=== PATIENT | male | born 1940 | race Caucasian/White ===

== ENCOUNTER → 2024-11-05 10:40 | Outpatient (REF) | payer MEDICARE, SELFPAY | LOC: RCS 10:40 | PROVIDERS: ATTENDING PHYSICIAN Internal Medicine Cardiovascular Disease; FAMILY PHYSICIAN Internal Medicine | DX: I10 Essential (primary) hypertension (principal); R00.2 Palpitations; R53.83 Other fatigue | CPT/HCPCS: 93017 ==

== ENCOUNTER → 2024-11-15 06:15 | Outpatient (REF) | payer MEDICARE, SELFPAY | LOC: MRI 3T 06:15 | PROVIDERS: ATTENDING PHYSICIAN Physician Assistant; FAMILY PHYSICIAN Internal Medicine | DX: M25.562 Pain in left knee (principal); M25.561 Pain in right knee | CPT/HCPCS: 73721 ==

== ENCOUNTER 2025-05-25 05:49 | Inpatient (IN) | payer OTHER, SELFPAY ==
--- NOTE | 2025-04-08 14:44 | CM ---
CM left message.
--- NOTE | 2025-04-09 12:42 | CM ---
CM spoke with patient. CM confirmed demographics. Patient lives independently with with . Patient does not have a history of VN or SNF. Patient has a cane for ambulation. Patient is active with his PCP. Patient uses [facility] for medication
services. Patient stated that he has not considered outpatient PT. He advised this CM that his family is unable to drive him and due to convenience of his family is he requesting VN. CM advised that outpatient PT is recommended and PT in the
hospital would evaluate for any changes from that discharge plan.
Patient stated that he called his insurance and was advised that it would be covered. Patient will meet with Dr. Cantu and he will discuss with Dr. Cantu that he does not want outpatient PT. Patient reiterated it is only for convenience of his
family and they will not be available to drive patient to his outpatient appointments.
CM encouraged patient to make an outpatient appointment with his preferred facility. Patient will discuss discharge plan with Dr. Cantu.
PLAN: Pending, CM advised outpatient PT.
--- NOTE | 2025-04-14 12:45 | CM ---
CM received call from patient explaining that he has a pending Moh's procedure and is unsure how to proceed. CM advised patient to call [facility] and update surgeon with patient's concerns.
--- NOTE | 2025-04-30 11:51 | CM ---
Addendum entered by Gissel Anderson RN 05/01/25 10:34:
HORACIO spoke with Chong from [facility] and was updated that they are attempting to put patient's DME through his insurance. As per Chong, Venous compression device is NOT covered, but they will attempt to assist patient. CM updated patient and encouraged patient
to call Chong with further questions.
CM will remain available as needed.
Original Note:
CM received call from patient requesting home care post operatively. Patient stated that [facility]. CM updated [facility] Admission RN.
Patient further stated that he is unable to secure a Venous Compression Device from [facility] due to cost. CM left message for Chong at [facility] to discuss alteratives to [facility] for patient.
[2025-05-11 11:46] LABS: Hematocrit 34.7 % (39.0-52.0); Hemoglobin 12.2 g/dL (13.0-18.0); Mean Corp Hgb Conc. 35.2 g/dL (33.0-37.0); Mean Corpuscular Volume 94.0 fL (80.0-94.0); Platelet Count 189 10^3/uL (130-400); Red Cell Dist. Width 13.2 % (11.5-14.5)
[2025-05-11 13:06] LABS: Glycohemoglobin (HgbA1c) 5.4 % (4.0-5.6)
[2025-05-11 14:23] VITALS: BMI 25.6
[2025-05-11 14:51] VITALS: BMI 25.6
[2025-05-11 15:55] LABS: ALT (SGPT) 24 U/L (0-50); AST (SGOT) 33 U/L (17-59); Albumin 4.5 g/dl (3.5-5.0); Alkaline Phosphatase 50 U/L (38-126); Blood Urea Nitrogen 15 mg/dl (9-20); Calcium 8.9 mg/dl (8.4-10.2); Carbon Dioxide 23 mmol/L (22-30); Chloride 99 mmol/L (98-107); Estimated Creatinine Clearance 65 ml/min; Glucose 74 mg/dl (70-99); Potassium 4.8 mmol/L (3.5-5.1); Sodium 133 mmol/L (135-145); Total Protein 7.0 g/dl (6.3-8.2); eGFR > 60.00
--- NOTE | 2025-05-12 15:19 | VNURNOTE ---
Rec'ed info from Surg coordinator, Gissel that patient had questions r/t home health services. Called patient. Answered all questions: when to expect a call from [facility] after surgery, estimated length of services, etc. Patient verbalized
understanding. Patient stated he has a bedroom on the first floor of his condo. He confirms that his spouse will be home with him and his daughter will pick him up when cleared for DC. [facility] will follow. Referral accepted in [facility].
--- NOTE | 2025-05-14 12:10 | CM ---
CM received call from patient who stated that he was curious if he would be cared for by a resident since his surgery was May 25. CM advised that patient would not have residents caring for him unless the hospitalist service was consulted. Patient
appeared to be satisfied with that answer. CM will remain available as needed.
[2025-05-18 14:05] VITALS: BMI 24.2
[2025-05-25] VITALS (12 sets, daily range): BP systolic 94–145; BP diastolic 67–86; PULSE 88–89; O2SAT 98
[2025-05-25] MEDS: TYLENOL 650 MG PO ×4 (06:20→23:00)
[2025-05-25] MEDS: CELEBREX 200 MG PO (06:20)
[2025-05-25] MEDS: NORMOSOL-R/PLASMALYTE-A 1000 IV (06:34)
[2025-05-25] MEDS: ROXICODONE 5 MG PO ×3 (10:18→20:38)
--- NOTE | 2025-05-25 10:45 | PTCARENOTE ---
Pt received from the PACU via bed. Transport was w/o incident. Pt is AAOx3, HRR w/ murmur. Lungs are clear, resp. easy. Pt noted to have as baseline scrape on right herrno, and right foot, CARROLL: healing. Pt's surgical dressing to right knee C/D/I scant
amt. of drainage noted on antibacterial dressing. Pt deneis nausea and admits to mild pain to right knee. VSS, Pt is afebrile. Pt oriented to new hosp. room and instructed on plan of care. Pt verbalized understanding of instructions. Call thorpe is
within reach.
[2025-05-25] MEDS: NSS 1000 IV (10:55)
[2025-05-25] MEDS: SYNTHROID PO (10:55)
[2025-05-25] MEDS: DIOVAN PO (10:55)
--- NOTE | 2025-05-25 12:10 | W.PN.UPDATE ---
Update Note
Progress Note Update
R knee OA s/p R TKA w/ Dr Cantu 05/25/25
DVT prophylaxis - ASA, b/l venous foot pumps
HTN - + parameters - monitor BP
PAT w/ h/o palpitations - monitor on tele
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
SOFIA, compliant with CPAP
Empyema, 2018, following chest tube insertion for traumatic lung injury
- Monitor O2
- IS
- Resume CPAP HS
GERD - continue PPI therapy
Iron deficiency anemia, on oral supplementation - non-invasive hgb in AM
- Continue PO iron
Mild hyponatremia, likely in setting of daily alcohol - NSS running
- Asymptomatic
Daily alcohol, 1 drink reported daily - monitor for potential s/sx of withdrawal
Mild valvular disease
Remote diverticulitis
Multilevel degenerative disc disease
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
Hypothyroidism
Basal cell carcinoma, status post Mohs
Osteopenia
MRSA of pleural space 2018; 2 negative screens since diagnosis
Pt will need home PT/VN initially upon d/c
[2025-05-25] MEDS: TYLENOL PO (14:31)
[2025-05-25] MEDS: FEOSOL 325 MG PO (14:41)
[2025-05-25] MEDS: REFRESH EYE DROPS (PF) 2 DROPS OPHTH (14:42)
[2025-05-25] MEDS: PROTONIX 40 MG PO (14:42)
[2025-05-25] MEDS: ANCEF 5 IV ×2 (14:47→22:02)
[2025-05-25] MEDS: ASPIRIN 325 MG PO (18:54)
[2025-05-25] MEDS: DECADRON 4 MG PO (20:15)
[2025-05-25] MEDS: SENOKOT 17.2 MG PO (20:15)
[2025-05-25] MEDS: BACTROBAN 2% OINTMENT 1 APPLIC NASAL (20:15)
[2025-05-25] MEDS: COLACE 100 MG PO (20:15)
[2025-05-25] MEDS: NEURONTIN 300 MG PO (22:00)
[2025-05-26] MEDS: ROXICODONE 10 MG PO ×3 (01:25→12:38)
[2025-05-26] MEDS: MYLICON 80 MG PO (02:16)
[2025-05-26 03:15] VITALS: BP 123/49
[2025-05-26] MEDS: TYLENOL 650 MG PO ×3 (03:32→12:36)
[2025-05-26] MEDS: SYNTHROID 100 MCG PO (06:19)
[2025-05-26 07:30] VITALS: BP 132/86
[2025-05-26] MEDS: BACTROBAN 2% OINTMENT 1 APPLIC NASAL (09:09)
[2025-05-26] MEDS: FEOSOL 325 MG PO (09:10)
[2025-05-26] MEDS: PROTONIX 40 MG PO (09:10)
[2025-05-26] MEDS: COLACE 100 MG PO (09:10)
[2025-05-26] MEDS: ASPIRIN 325 MG PO (09:10)
[2025-05-26] MEDS: CELEBREX 200 MG PO (09:10)
[2025-05-26] MEDS: SENOKOT 17.2 MG PO (09:11)
[2025-05-26] MEDS: DIOVAN 80 MG PO (09:11)
[2025-05-26] MEDS: DECADRON 4 MG PO (09:11)
--- NOTE | 2025-05-26 09:41 | W.PN.ORTHO ---
Today's Communication / Plan
-
Await PT and OT recs.
D/c later today if remaining clinically stable.
Assessment
.
Distal Motor Intact: Yes
Dressing:
Scant old incisional bleeding.
Assessment:
R knee OA s/p R TKA w/ Dr Cantu 05/25/25
DVT prophylaxis - ASA, b/l venous foot pumps
HTN - + parameters - BPs overall stable
PAT w/ h/o palpitations - maintaining NSR w/ occasional PVCs on tele
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
SOFIA, compliant with CPAP
Empyema, 2018, following chest tube insertion for traumatic lung injury
- O2 stable on RA
- IS
- Resumed CPAP HS
GERD - continue PPI therapy
Iron deficiency anemia, on oral supplementation - non-invasive hgb stable at 10.6 POD 1
- Asymptomatic, hemodynamically stable
- Continue PO iron
Mild hyponatremia, likely in setting of daily alcohol - s/p NSS
- Asymptomatic
Daily alcohol, 1 drink reported daily - no s/sx of withdrawal noted
Mild valvular disease
Remote diverticulitis
Multilevel degenerative disc disease
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
Hypothyroidism
Basal cell carcinoma, status post Mohs
Osteopenia
MRSA of pleural space 2018; 2 negative screens since diagnosis
Pt will need home PT/VN initially upon d/c
Plan
.
Surgery / Date: R TKA w/ Dr Cantu 05/25/25
DVT Prophylaxis: Aspirin
Activity:
Out of bed.
PT/OT
Discharge Plan: Home w/ VN
Subjective
.
.:
Patient resting comfortably in bed this AM.
R knee pain better controlled w/ switch from 5 mg to 10 mg of Oxycodone overnight.
Denies any new significant complaints.
Eager for potential d/c today.
Vital Signs and Labs
.
Vital Signs and Labs:
Lab Results
05/11/25 11:15
05/11/25 11:15
Temp Pulse Resp BP Pulse Ox
97.6 F 73 16 132/86 96
05/26/25 07:30 05/26/25 07:30 05/26/25 07:30 05/26/25 07:30 05/26/25 07:30
Non-invasive Hgb result: 10.6
Physical Exam
-
HEENT: No pallor, cyanosis, or jaundice. Throat clear.
NECK: Supple. No JVD.
RESPIRATORY: Lungs clear to auscultation.
CVS: S1, S2 normal. RRR with occasional ectopy.�
ABDOMEN: Soft, non-tender. No distension.
EXTREMITIES: Expected post-surgical R knee edema. Strength equal, no calf pain with palpation/dorsiflexion. Calves soft.
SQE: AOx3. No focal deficits. promotional model grossly intact
--- NOTE | 2025-05-26 09:54 | W.DS.TRANS ---
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
-
Discharge Instructions:
Sleep Apnea Risk Intermediate
Discharge Diagnosis/Procedures R knee OA s/p R TKA w/ Dr Cantu 05/25/25
Diet Regular
Additional Diets Adequate hydration, minimize opioids, and wear
TEDs stockings to prevent low blood pressure/
dizziness.
Activity As tolerated,With Walker
Driving Restrictions Not until seen by your Dr
Bathing Restrictions OK to Shower
Other Services PT,VN
Wound Care Dressing to be removed 1 week post-surgery.
[place] to be removed at 2 week follow up with
surgeon's office.
Instructions:
Stand-Alone Forms: Total Hip/Knee Replacement D/C
Changes to Home Medications: Yes
Discharge Medications:
DC Medications w/original date entered in [facility]
levothyroxine 100 mcg tablet 100 mcg PO DAILY 07/23/18
Glucosamine 1 dose PO DAILY 05/08/25
Held on 05/26/25. Instructions: Resume on 06/01/25.
carboxymethylcellulose sodium 0.5 % eye drops (Refresh Tears) 2 drp ophthalmic (eye) BID PRN dry eyes 05/08/25
multivitamin 1 tab PO DAILY 05/08/25
mupirocin 2 % topical ointment 1 applic intranasal BID #1 tube 05/11/25
omeprazole magnesium 20 mg tablet,delayed release (Prilosec OTC) 20 mg PO DAILY 05/11/25
acetaminophen 500 mg tablet (Tylenol Extra Strength) 1,000 mg (2 x 500 mg) PO Q6H #60 tabs 05/26/25
aspirin 325 mg tablet 325 mg PO DAILY #30 tabs 05/26/25
celecoxib 200 mg capsule 200 mg PO DAILY #14 caps 05/26/25
dexamethasone 4 mg tablet 4 mg PO BID #5 tabs 05/26/25
docusate sodium 100 mg capsule 100 mg PO BID #30 caps 05/26/25
ferrous sulfate 325 mg (65 mg iron) tablet (FeroSul) 325 mg PO DAILY #30 tabs 05/26/25
gabapentin 300 mg capsule 300 mg PO HS neuropathic pain/sleep #10 caps 05/26/25
ondansetron HCl 4 mg tablet 4 mg PO Q6H PRN nausea and vomiting #30 tabs 05/26/25
oxycodone 5 mg tablet 5 - 10 mg (1 - 2 x 5 mg) PO Q6H PRN moderate-severe pain #30 tabs 05/26/25
sennosides 8.6 mg tablet (Beoni-marcos) 17.2 mg (2 x 8.6 mg) PO BID #30 tabs 05/26/25
valsartan 40 mg tablet 80 mg (2 x 40 mg) PO DAILY #1 tab 05/26/25
Home Medication Changes
acetaminophen 500 mg tablet (Tylenol Extra Strength) 1,000 mg (2 x 500 mg) PO Q6H #60 tabs 05/26/25
aspirin 325 mg tablet 325 mg PO DAILY #30 tabs 05/26/25
celecoxib 200 mg capsule 200 mg PO DAILY #14 caps 05/26/25
dexamethasone 4 mg tablet 4 mg PO BID #5 tabs 05/26/25
docusate sodium 100 mg capsule 100 mg PO BID #30 caps 05/26/25
ferrous sulfate 325 mg (65 mg iron) tablet (FeroSul) 325 mg PO DAILY #30 tabs 05/26/25
gabapentin 300 mg capsule 300 mg PO HS neuropathic pain/sleep #10 caps 05/26/25
ondansetron HCl 4 mg tablet 4 mg PO Q6H PRN nausea and vomiting #30 tabs 05/26/25
oxycodone 5 mg tablet 5 - 10 mg (1 - 2 x 5 mg) PO Q6H PRN moderate-severe pain #30 tabs 05/26/25
sennosides 8.6 mg tablet (Eboni-marcos) 17.2 mg (2 x 8.6 mg) PO BID #30 tabs 05/26/25
Pending Results: No
--- NOTE | 2025-05-26 10:45 | CM ---
Reviewed the chart notes and spoke with the patient at the bedside. CM consult for VN received. Discussed with the patient area VN agencies. Patient selected VN. Referral sent via [facility]. IMM reviewed. CM continues to be available to
patient/family and is monitoring medical plan for needs at discharge.
Plan: Discharge to home with VN services.
[2025-05-26 10:46] VITALS: BP 116/74; PULSE 83; O2SAT 97
[2025-05-26 11:11] VITALS: BP 127/64
[2025-05-26 11:58] VITALS: BP 120/72; PULSE 67; O2SAT 96
== END 2025-05-26 14:00 | disposition home health service (06) | DRG 470 ==
LOC: 2 SOUTH 05:49
PROVIDERS: ADMITTING PHYSICIAN Specialist; FAMILY PHYSICIAN Internal Medicine; REFERRING PHYSICIAN Internal Medicine Cardiovascular Disease
PROC: 0SRC0J9 Replacement of Right Knee Joint with Synthetic Substitute, Cemented, Open Approach (ICD-10-PCS; 2025-05-25)
DX: M17.11 Unilateral primary osteoarthritis, right knee (principal); E87.1 Hypo-osmolality and hyponatremia; I47.19 Other supraventricular tachycardia; I10 Essential (primary) hypertension; I72.3 Aneurysm of iliac artery; I72.4 Aneurysm of artery of lower extremity; K21.9 Gastro-esophageal reflux disease without esophagitis; D50.9 Iron deficiency anemia, unspecified; E03.9 Hypothyroidism, unspecified; G47.33 Obstructive sleep apnea (adult) (pediatric); M85.80 Other specified disorders of bone density and structure, unspecified site; Z59.82 Transportation insecurity; Z79.899 Other long term (current) drug therapy; Z85.828 Personal history of other malignant neoplasm of skin; Z86.61 Personal history of infections of the central nervous system
CPT/HCPCS: 36415; 73560; 80053; 83036; 85027; 87070; 97110; 97116; 97162; 97166; 97530; 97535; C1713; C1776